=== PATIENT | female | born 2000 | race Two or more races ===

== ENCOUNTER 2020-05-22 20:30 | Emergency (ER) | payer OTHER ==
[~2020-05-22] VITALS: Ht 160 cm; Wt 59.0 kg
--- NOTE | 2020-05-22 20:41 | NUR ---
ED Nurse Note: Patient walked into the ED with c/o itching on eyebrow onset 3 wks ago. Pt was prescribed with antifungal and creams 1 week ago and is not got getting better per pt. Pt AAOx4 and ambulatory. ERMD at bedside
--- NOTE | 2020-05-22 20:41 | NUR ---
ED Nurse Note: Visual Acuity 20/30 on both eyes.
[2020-05-22 20:42] VITALS: BP 117/84
[2020-05-22] MEDS ORDERED: MUPIROCIN22 GM TOPIC (20:49)
[2020-05-22] MEDS ORDERED: CLOTRIMAZOLE15 GM TOPIC (20:49)
--- NOTE | 2020-05-22 20:53 | Emergency Room Report ---
History of Present Illness General Chief Complaint: Skin Rash/Abscess Source: Patient Present Illness HPI Patient presents to the emergency department today complaining of rash on the right eyebrow. Patient states that she has had this rash on her right eyebrow that progressively became worse over the last few weeks. He seems to be involving her left eyebrow now. She states that she is starting to lose hair. She states that is fairly itchy. She states that she was told that maybe was eczema. Patient was started on steroid cream hydrocortisone and triamcinolone and symptoms did not appear to be improving. Therefore she came here for further evaluation. She has not seen a math and science division chair. She denies any involvement of her eyes. Denies any visual changes. No other rashes anywhere else. Symptoms noted to be mild. No other modifying factors. No other associated signs and symptoms. No other complaints were noted. Allergies: Coded Allergies: No Known Allergies (Unverified , 05/22/20) COVID-19 Screening Contact w/high risk pt: No Recent Travel to affected area: No Experienced COVID-19 symptoms?: No COVID-19 Testing performed BATCH ATTENDANT: No Patient History Past Medical History: none Past Surgical History: none Pertinent Family History: none Social History: Denies: smoking, alcohol use, drug use Now: No Reviewed Nursing Documentation: PMH: Agreed; PSxH: Agreed Nursing Documentation-PMH Past Medical History: No Stated History Review of Systems All Other Systems: negative except mentioned in HPI Physical Exam Vital Signs Date Time Temp Pulse Resp B/P (MAP) Pulse Ox O2 Delivery O2 Flow Rate FiO2 05/22/20 20:33 98.4 85 20 117/84 (95) 98 Room Air Sp02 EP Interpretation: reviewed, normal General Appearance: normal inspection, well appearing, no apparent distress, alert Head: atraumatic Eyes: bilateral eye normal inspection ENT: normal ENT inspection, hearing grossly normal, normal voice Neck: normal inspection, full range of motion, supple, no bony tend Respiratory: normal inspection, lungs clear, normal breath sounds, no res piratory distress, no retraction, no wheezing Cardiovascular #1: regular rate, rhythm, no edema Gastrointestinal: normal inspection, normal bowel sounds, non tender, soft, no guarding, no hernia Genitourinary: no CVA tenderness Musculoskeletal: normal inspection, back normal, normal range of motion Neurologic: alert, responsive, speech normal, normal inspection Psychiatric: normal inspection, judgement/insight normal, mood/affect normal Skin: other - Rash on right eyebrow which is flaking no evidence of erythema Medical Decision Making Diagnostic Impression: Primary Impression: Dermatitis ER Course Patient presents emergency department today complaining of rash on the right eyebrow. Differential considerations include abscess, cellulitis, folliculitis, dermatitis, tinea just to name a few. Patient's exam is consistent with a dermatitis which could be secondary to a fungal origin or perhaps even mild f olliculitis. Recommend topical antibiotic and antifungal ointment. Recommend outpatient follow-up with dermatology. Patient is advised to follow up with primary doctor in 2-3 days and return the emergency room for any worsening symptoms and as needed. Last Vital Signs Date Time Temp Pulse Resp B/P (MAP) Pulse Ox O2 Delivery O2 Flow Rate FiO2 05/22/20 20:42 98.4 20 117/84 98 Room Air 05/22/20 20:33 85 Status: improved Disposition: HOME, SELF-CARE Condition: Stable Scripts Mupirocin* (MUPIROCIN*) 22 Gm Oint...g. 1 APPLIC TOPIC THREE TIMES A DAY for 14 Days, GM Prov: Will Baez MD 05/22/20 Clotrimazole* (LOTRIMIN*) 15 Gm Cream..g. 1 APPLIC TOPIC TWICE A DAY for 14 Days, GM Prov: Will Baez MD 05/22/20 Patient Instructions: Scalp Ringworm, [id number], Folliculitis Will Baez MD May 22, 2020 20:53
--- NOTE | 2020-05-22 20:56 | NUR ---
ER DISCHARGE NOTE: Patient is cleared to be discharged per ERMD, pt is aox4, on room air, with stable vital signs. pt was given dc and prescription instructions, pt was able to verbalize understanding, pt id band removed. pt is able to ambulate with steady gait. pt took all belongings.
[2020-05-22 20:57] VITALS: BP 117/84
== END 2020-05-22 20:58 | disposition home or self-care (01) ==
LOC: EMR 20:42
DX: L30.9 Dermatitis, unspecified (principal)
CPT/HCPCS: 99282